=== PATIENT | male | born 1960 | race Caucasian/White ===

== ENCOUNTER → 2023-01-13 10:06 | Outpatient (BNVA) | payer OTHER, SELFPAY | PROVIDERS: PCP Hospitalist; Visit Provider Nurse Practitioner Family ==

== ENCOUNTER 2023-01-13 11:08 | Outpatient (AMB) | payer OTHER, SELFPAY ==
--- NOTE | 2023-01-13 10:11 | MHC.OFFVIS ---
Intake Vital Signs 01/13/23 10:17 Height 5 ft 9 in Weight 211 lb 3.245 oz BMI 31.2 BP 137/71 Blood Pressure Location Lt brachial Position Sitting Pulse 81 Pulse Source Pulse Oximeter Intake Visit Reasons: Colonoscopy Screening Intake Note: Pt presents to the office today for a colonoscopy screening. Pt states he has never had a colonoscopy before. Pt states he has no GI concerns at this time and denies any N/V/D. Pt states he has been having issues on and off since September on his right buttocks which becomes itchy. Pt states he was treated for a yeast infection but pt states the rash is still there but isn't as itchy. Allergies No Known Allergies Allergy (Verified 01/13/23 10:18) HPI Colonoscopy Screening HPI Details 62 year old? male with past medical history of hypertension and hyperlipidemia is here today for pre colonoscopy screening.? Patient was sent to us by his PCP.? This is his first colonoscopy screening.? Patient denies any gastrointestinal symptoms in the past or at present.? Denies any personal or family history of gastrointestinal disease, colon polyps, or cancer. Patient reports that his mom of pancreatic cancer 4 years ago at age of 76.? Denies history of difficulty with sedation or anesthesia in the past.? Negative for history of sleep apnea.? Denies any history of renal, pulmonary, or hepatic disease.?? Patient reports 16 years ago he had stent placed, 4 years later he had partial blockage and drug-eluting stent placed then as well. Patient reports that since then he has no cardiac or respiratory symptoms. No history of infectious? diseases like hepatitis A, B, C, HIV or tuberculosis.? Patient is on low-dose aspirin PFSH Family History Mother Pancreatic cancer Household Members: Spouse Housing: House Alcohol intake: current Alcohol intake frequency: a few times a week Alcohol type: beer and wine Patient Tobacco Use Status: Former Tobacco user Use of substances other than those prescribed or required for medical reasons: No Review of Systems Const Denies weight gain and Denies weight loss ENT Reports no additional complaints, Denies dysphagia and Denies odynophagia Card Reports no additional complaints Resp Reports no additional complaints GI Denies abdominal pain, Denies belching, Denies melena, Denies bloating, Denies change in bowel habits, Denies dysphagia, Denies excessive flatus, Denies dyspepsia, Denies heartburn, Denies diarrhea, Denies loose stools, Denies nausea, Denies odynophagia and Denies vomiting Reports no additional complaints Musc Reports no additional complaints Neuro Reports no additional complaints Psych Reports no additional complaints Endo Reports no additional complaints Physical Exam Vital Signs: Last Vital Signs Pulse 81 01/13/23 10:17 BP 137/71 01/13/23 10:17 BMI result Body Mass Index 31.2 Const General: healthy appearing, no acute distress and well developed Nutritional Appearance: obese Orientation/consciousness: patient oriented x3 HEENT Head: Yes normal to inspection, Yes normocephalic and Yes atraumatic Face and sinus: Yes normal facial exam Mouth: Normal oral and palatal mucosa present Throat: Yes posterior oropharynx normal, Yes tonsils normal and Yes uvula midline Eyes General: appearance normal, both eyes and all related structures Neck Neck: Yes normal visual inspection, Yes full ROM and Yes trachea midline Thyroid: Thyroid normal Resp Effort & Inspection: normal respiratory effort, able to speak in complete sentences, no tracheal deviation and symmetric chest movement Auscultation: clear to auscultation bilaterally Cardio Rate: regular rate Heart sounds: S1 normal heart sound present and S2 normal heart sound present GI Inspection: Yes normal to inspection, No distended and Yes obesity Palpation (GI): Soft to palpation, not firm, nontender and No hepatosplenomegaly present Auscultation: normal bowel sounds General: Yes no CVA tenderness Back/Spine/Pelvis Back: no CVA tenderness Skin General skin exam: elasticity normal, turgor normal and dry skin Neuro General: patient oriented x3 Psych Appearance: grossly normal Mental Status: mental status grossly normal Affect: normal affect Assessment & Plan Assessment & Plan (1) Screen for colon cancer: Code(s): Z12.11 - Encounter for screening for malignant neoplasm of colon Plan: Patient denies any GI, cardiac or respiratory symptoms.? Occasional constipation. Denies any issues with anesthesia in the past.? Denies any history of sleep apnea.? No history infectious diseases in the past or present.? On low-dose aspirin.? No family or personal history of colon cancer or polyps.? Patient denies melena, hematochezia, unintentional weight loss or ribbon like stools.? Discussed at length the pre-procedure,? prep, diet & medications as well as what to expect prior, during and after the procedure.?? Stressed the importance of good bowel prep. ?Recommended the use of Vaseline or Calmoseptine OTC & baby wipes with bowel movements to promote comfort.? ?Patient verbalizes understanding and agrees to plan of care.? He was given the opportunity to ask questions and all questions answered.? We will see him after the procedure.? Medications: New polyethylene glycol 3350 (Miralax) As directed by gastroenterology department at [facility] 238 grams PO ONCE 238 grams 0RF Z12.11 - Encounter for screening for malignant neoplasm of colon bisacodyl (Dulcolax (bisacodyl)) 10 mg (2 x 5 mg) PO BEDTIME 180 tabs 4RF Coding Level of Care Code New Pt Level 3 (90240) Diagnoses Screen for colon cancer Z12.11 Time Spent (min) 40 Comment 30 minutes spent with patient and additional 10 minutes spent reviewing his records
[2023-01-13 10:17] VITALS: BP 137/71; PULSE 81; BMI 31.2
== END 2023-01-13 11:09 | disposition home or self-care (01) ==
PROVIDERS: PCP Hospitalist; Visit Provider Nurse Practitioner Family
DX: Z01.818 Encounter for other preprocedural examination (principal); Z12.11 Encounter for screening for malignant neoplasm of colon
CPT/HCPCS: S0285

== ENCOUNTER 2023-06-04 09:17 | Day surgery (SDC) | payer OTHER, SELFPAY ==
[2023-05-30 13:36] VITALS: BMI 31.2
[2023-06-04 09:41] VITALS: BP 135/77; PULSE 78; RESP 19; TEMP 36.3; O2SAT 97; BMI 30.3
[2023-06-04] MEDS: Lactated Ringers 1,000 ML 50 ML IVCONT (09:57)
--- NOTE | 2023-06-04 09:58 | MHC.SHP ---
Pre-Procedural Eval Section A - 24 Hr Update-Section A only Date of Service: 06/04/23 Section B - Complete if H&P > 30 days Chief Complaint: screening Relevant Family History (Specify if Yes): No Relevant Social History: Alcohol Use Present Medications: see Short Stay Collaborative assessment Medical History: Significant History (Seasonal allergies Hypercholesteremia Myocardial infarction HTN (hypertension)) History of Previous Operations: Relevant previous surgery/procedure and date(s) ([place] teeth extracted Stented coronary artery) Allergies: Allergies Allergy/AdvReac Type Severity Reaction Status Date / Time No Known Allergies Allergy Verified 01/13/23 10:18 Review of Systems Sugical H&P ROS: Negative: Constitution, Cardiovascular, Respiratory, Neurological, Psychiatric, Hem-Onc, Allergic/Immunologic, Gastrointestinal, Genitourinary, Musculoskeletal, Integumentary, Endocrine and Eyes/Ears/Nose/Throat Exam Surgical H&P Exam: Normal: HEENT, Normal: Heart, Normal: Lungs, Normal: Extremities, Normal: Abdomen, Normal: Skin and Normal: Neurological Plan Diagnosis/Plan: Unchanged I have reviewed the history and physical and performed a pertinent physical examination on my patient. No changes have occurred unless specified. Time Spent With Patient Time: Total time managing care of this patient today ____ minutes.
--- NOTE | 2023-06-04 10:22 | P.CONAN_ITS ---
HPI - Anesthesia Eval Consult details Narrative: for colonoscopy [facility] Past Medical History Medical History Seasonal allergies Hypercholesteremia Myocardial infarction HTN (hypertension) Family History Family History Mother Pancreatic cancer Family history of problems with anesthesia: No Surgical History Surgical History [place] teeth extracted Stented coronary artery History of Problems with Anesthesia: No Social History Social History Household Members: Spouse Housing: House Alcohol intake: current Alcohol intake frequency: a few times a week Alcohol type: beer and wine Tobacco use type: Smokeless Tobacco Are you DNR?: No Advance Directives: No Advance Directives Information Provided: Yes Nutrition Risks: No Nutritional Risk Meds Allergies Allergy/AdvReac Type Severity Reaction Status Date / Time No Known Allergies Allergy Verified 01/13/23 10:18 Active Medications: Current Medications Lactated Ringer's (Lr) 1,000 mls @ 50 mls/hr IVCONT .Q20H WINNIE Last Admin: 06/04/23 09:57 Dose: 50 mls/hr Home Medications ?Medication ?Instructions ?Recorded ?Confirmed ?Last Taken ?Type aspirin 81 mg tablet,delayed 81 mg PO DAILY 01/13/23 06/04/23 06/03/23 History release (Adult Aspirin Regimen) atorvastatin 80 mg tablet 80 mg PO DAILY 01/13/23 06/04/23 06/03/23 History metoprolol succinate 50 mg 50 mg PO DAILY 01/13/23 06/04/23 06/03/23 History tablet,extended release 24 hr Exam Height,Weight and Vital Signs: Height 5 ft 9 in Weight 93.123 kg Last Vital Signs Temp 97.4 F 06/04/23 09:41 Pulse 78 06/04/23 09:41 Resp 19 06/04/23 09:41 BP 135/77 06/04/23 09:41 Pulse Ox 97 06/04/23 09:41 O2 Del Method Room Air 06/04/23 09:41 Airway Mallampati Class: II TM Dist: >3cm Neck ROM: Full Heart: rrr Lungs: cta Assessment and Plan Assessment Anesthesia Assessment: Anesthesia Plan Discussed and Chart Reviewed Final Anesthetic Review Family History of Problems with Anesthesia: No History of Problems with Anesthesia: No NPO: Yes ASA Class: III Final Preanesthetic Review: No Changes in Pt Med Stat, Meds/Allgs Chart Reviewed, Consent Obtained/Reviewed and Anes Risks/Benef Reviewed Patient Risk: Intermediate (CAD, 2 stents) Procedure Risk: Low Anesthetic Plan Anesthetic Plan: MAC: Disposition: Standard PACU
--- NOTE | 2023-06-04 11:07 | P.OP_ITS ---
Operative Note Operative Note Date of Service: 06/04/23 Narrative: Operative Information Procedure Description: Colonoscopy Indication: screening Anesthesia: MAC COLONOSCOPY Instrument: Olympus variable stiffness ADULT scope 190L Colonoscopy Monitoring: Vital signs and clinical assessment, continuous EKG monitoring, Pulse oximetry, Carbon Dioxide monitoring and blood pressure monitoring were done throughout the procedure. Colon withdrawal time was 7 minutes. Procedure: The patient was placed in the left lateral decubitis position and pre-procedure medications were administered. After a digital rectal examination of the ano-rectum, the video colonoscope was inserted into the rectum and advanced through the colon to the cecum/TI. The colonoscope was slowly withdrawn in a retrograde panoramic fashion and the colon mucosa was carefully examined including a retroflexed view of the rectum. Findings and interventions are described below. Procedure Difficulty: easy Findings: Terminal Ileum-normal Cecum:normal Ascending Colon: x3-- 8-10 mm sessile polyps removed with cold snare Transverse Colon -normal Descending Colon:normal Sigmoid Colon: x2 sessile polyps 8-10 mm removed with cold snare Rectum: Retroflexion with small internal hemorrhoids seen, grade I Anorectum - normal Intervention: cold snare polypectomy Colon preparation: [place] Bowel Preparation Scale Right colon; 2 Transverse colon: 3 Left colon; 3 (0 = Unprepared colon segment with mucosa not seen due to solid stool that cannot be cleared. 1 = Portion of mucosa of the colon segment seen, but other areas of the colon segment not well seen due to staining, residual stool and/or opaque liquid. 2 = Minor amount of residual staining, small fragments of stool and/or opaque liquid, but mucosa of colon segment seen well. 3 = Entire mucosa of colon segment seen well with no residual staining, small fragments of stool or opaque liquid) Impression and Post Procedure Diagnosis: colon polyps internal hemorrhoids Plan: High fiber diet leaflet Avoid straining at stool, epsom salts and sitz bath, anusol supps or cream Repeat Colonoscopy in 1-2 years due to polyp burden or earlier if clinically indicated Above findings were reviewed with the patient and relevant handouts were provided if indicated.
[2023-06-04 11:11] VITALS: BP 107/60; PULSE 65; RESP 16; TEMP 36.1; O2SAT 97
[2023-06-04 11:26] VITALS: BP 131/60; PULSE 68; RESP 20; TEMP 36.1; O2SAT 95
== END 2023-06-04 12:33 | disposition home or self-care (01) ==
PROVIDERS: PCP Hospitalist; Visit Provider Internal Medicine Gastroenterology
PROC: 0DJD8ZZ Inspection of Lower Intestinal Tract, Via Natural or Artificial Opening Endoscopic (ICD-10-PCS; CPT 45378; principal; 2023-06-04 11:10)
DX: Z12.11 Encounter for screening for malignant neoplasm of colon (principal); D12.2 Benign neoplasm of ascending colon; D12.4 Benign neoplasm of descending colon; D12.5 Benign neoplasm of sigmoid colon; K64.0 First degree hemorrhoids; I10 Essential (primary) hypertension; I25.2 Old myocardial infarction
CPT/HCPCS: 45385; 88305; J1596; J2704

== ENCOUNTER → 2023-06-04 09:17 | Outpatient (BNV) | payer OTHER, SELFPAY | PROVIDERS: PCP Hospitalist; Visit Provider Internal Medicine Gastroenterology | DX: Z12.11 Encounter for screening for malignant neoplasm of colon (principal); D12.2 Benign neoplasm of ascending colon; D12.5 Benign neoplasm of sigmoid colon; K64.0 First degree hemorrhoids | CPT/HCPCS: 45385 ==

== ENCOUNTER 2023-06-18 10:56 | Outpatient (AMB) | payer OTHER, SELFPAY ==
--- NOTE | 2023-06-18 11:07 | A.OFFVIS_ITS ---
Vital Signs 06/18/23 11:15 06/18/23 11:17 Height 5 ft 9 in 5 ft 9 in Weight 207 lb 207 lb BMI 30.6 30.6 BP 147/70 H 147/70 H Blood Pressure Location Lt brachial Lt brachial Position Sitting Sitting Pulse 77 77 Intake Visit Reasons: s/p colon Chin Intake Note: Patient is seen in office for post op assessment post colonoscopy. Pt c/o: denies any concerns at the time of visit Adjunct Spanish Instructor Required: No Accompanied by: Self / Same As Patient Allergies No Known Allergies Allergy (Verified 06/18/23 11:08) HPI HPI s/p colon Chin: Details: LAST VISIT: Screen for colon cancer Patient denies any GI, cardiac or respiratory symptoms.? Occasional constipation. Denies any issues with anesthesia in the past.? Denies any history of sleep apnea.? No history infectious diseases in the past or present.? On low- dose aspirin.? No family or personal history of colon cancer or polyps.? Patient denies melena, hematochezia, unintentional weight loss or ribbon like stools.? Discussed at length the pre-procedure,? prep, diet & medications as well as what to expect prior, during and after the procedure.?? Stressed the importance of good bowel prep. ?Recommended the use of Vaseline or Calmoseptine OTC & baby wipes with bowel movements to promote comfort.? ?Patient verbalizes understanding and agrees to plan of care.? He was given the opportunity to ask questions and all questions answered.? We will see him after the procedure.? Plan Medications New polyethylene glycol 3350 (Miralax) As directed by gastroenterology department at [facility] 238 grams PO ONCE 238 grams 0RF Z12.11 bisacodyl (Dulcolax (bisacodyl)) 10 mg (2 x 5 mg) PO BEDTIME 180 tabs 4RF COLONOSCOPY: Findings: Terminal Ileum-normal Cecum:normal Ascending Colon: x3-- 8-10 mm sessile polyps removed with cold snare Transverse Colon -normal Descending Colon:normal Sigmoid Colon: x2 sessile polyps 8-10 mm removed with cold snare Rectum: Retroflexion with small internal hemorrhoids seen, grade I Anorectum - normal Intervention: cold snare polypectomy Colon preparation: [place] Bowel Preparation Scale Right colon; 2 Transverse colon: 3 Left colon; 3 (0 = Unprepared colon segment with mucosa not seen due to solid stool that cannot be cleared. 1 = Portion of mucosa of the colon segment seen, but other areas of the colon segment not well seen due to staining, residual stool and/or opaque liquid. 2 = Minor amount of residual staining, small fragments of stool and/or opaque liquid, but mucosa of colon segment seen well. 3 = Entire mucosa of colon segment seen well with no residual staining, small fragments of stool or opaque liquid) Impression and Post Procedure Diagnosis: colon polyps internal hemorrhoids Plan: High fiber diet leaflet Avoid straining at stool, epsom salts and sitz bath, anusol supps or cream Repeat Colonoscopy in 1-2 years due to polyp burden or earlier if clinically indicated PATHOLOGY RESULTS: Diagnosis A. Colon, ascending, polyps: Tubular adenomas (multiple pieces); negative for high-grade dysplasia and carcinoma, and inflammatory polyp (1 piece). B. Colon, descending, polyp: Tubular adenoma; negative for high-grade dysplasia and carcinoma. C. Colon, sigmoid, polyps: Tubular adenomas (2 pieces); negative for high-grade dysplasia and carcinoma. TODAY'S VISIT Patient is here today for follow-up and to discuss colonoscopy results. Patient denies any ill effects from the prep, anesthesia or procedure itself. Tubular adenoma found. Recommendation was made for patient to return for colonoscopy in 1-2 years due to the size of the polyps as well as the amount of polyps. Patient reports that he has been doing well. Denies any abdominal pain or discomfort. Denies any melena, hematochezia, unintentional weight loss or ribbon like stools. Patient denies any dyspepsia, dysphagia or odynophagia. [facility] Medical History (Updated 06/18/23 @ 11:29 by KENNY Wolff-) Tubular adenoma of colon Seasonal allergies Hypercholesteremia Myocardial infarction HTN (hypertension) Surgical History [place] teeth extracted Stented coronary artery Family History Mother Pancreatic cancer Social History Household Members: Spouse Housing: House Alcohol intake: current Alcohol intake frequency: a few times a week Alcohol type: beer and wine Tobacco use type: Smokeless Tobacco Review of Systems Const Denies weight gain and Denies weight loss ENT Reports no additional complaints, Denies dysphagia and Denies odynophagia Card Reports no additional complaints Resp Reports no additional complaints GI Denies abdominal pain, Denies belching, Denies melena, Denies bloating, Denies change in bowel habits, Denies dysphagia, Denies excessive flatus, Denies dyspepsia, Denies heartburn, Denies diarrhea, Denies loose stools, Denies nausea, Denies odynophagia and Denies vomiting Reports no additional complaints Musc Reports no additional complaints Neuro Reports no additional complaints Psych Reports no additional complaints Endo Reports no additional complaints Physical Exam Vital Signs: Last Vital Signs Pulse 77 06/18/23 11:17 BP 147/70 H 06/18/23 11:17 BMI result Body Mass Index 30.6 Const General: healthy appearing and no acute distress Nutritional Appearance: obese Orientation/consciousness: patient oriented x3 Resp Effort & Inspection: normal respiratory effort, able to speak in complete sentences, no tracheal deviation and symmetric chest movement Auscultation: clear to auscultation bilaterally Cardio Rate: regular rate GI Inspection: Yes normal to inspection, No distended and Yes obesity Palpation (GI): Soft to palpation, not firm, nontender and No hepatosplenomegaly present Auscultation: normal bowel sounds General: Yes no CVA tenderness Back/Spine/Pelvis Back: no CVA tenderness Skin General skin exam: elasticity normal, turgor normal and dry skin Neuro General: patient oriented x3 Psych Appearance: grossly normal Mental Status: mental status grossly normal Affect: normal affect Assessment & Plan Assessment & Plan (1) Tubular adenoma of colon: Code(s): D12.6 - Benign neoplasm of colon, unspecified Category: Medical (2) Status post colonoscopy: Code(s): Z98.890 - Other specified postprocedural states (3) Hemorrhoids without complication: Code(s): K64.9 - Unspecified hemorrhoids Plan Tubular adenoma found without high-grade dysplasia or carcinoma. Patient will return for colorectal screening in 1 year. High-fiber diet encouraged as well as drinking plenty fluids. Currently has no GI concerning symptoms. He is to call our office if he will have any GI symptoms. He is agreeable to this plan and verbalizes understanding of instructions. He was given the opportunity to ask questions and all questions answered. Medications: New hydrocortisone 2.5% (Proctosol HC) 1 appl RI BID-QID PRN 30 grams 2RF hemorrhoids K64.9 - Unspecified hemorrhoids Coding Level of Care Code Est Pt Level 3 (00250) Diagnoses Tubular adenoma of colon D12.6 Status post colonoscopy Z98.890 Hemorrhoids without complication K64.9 Time Spent (min) 30 Comment 20 minutes spent with patient and additional 10 minutes spent reviewing his records
[2023-06-18 11:15] VITALS: BP 147/70; PULSE 77; BMI 30.6
[2023-06-18 11:17] VITALS: BP 147/70; PULSE 77; BMI 30.6
== END 2023-06-18 11:37 | disposition home or self-care (01) ==
PROVIDERS: PCP Hospitalist; Visit Provider Nurse Practitioner Family
DX: D12.6 Benign neoplasm of colon, unspecified (principal); Z98.890 Other specified postprocedural states; K64.9 Unspecified hemorrhoids
CPT/HCPCS: 99213

== ENCOUNTER → 2023-06-18 10:56 | Outpatient (BNVA) | payer OTHER, SELFPAY | PROVIDERS: PCP Hospitalist; Visit Provider Nurse Practitioner Family ==

== ENCOUNTER 2024-06-18 10:52 | Outpatient (AMB) | payer OTHER, SELFPAY ==
--- NOTE | 2024-06-18 10:55 | MHC.OFFVIS ---
Vital Signs 06/18/24 11:06 Height 5 ft 9 in Weight 202 lb BMI 29.8 BP 126/68 Blood Pressure Location Rt brachial Position Sitting Pulse 72 Pulse Source Pulse Oximeter Pulse Oximetry (%) 98 Oxygen Delivery Method Room Air Intake Visit Reasons: 1 yr follow up Intake Note: ESTABLISHED PATIENT for recall screening. Last visit 1 year ago. Chief Complaint; Pt denies any GI sx or concerns at this time. Pt repeating colo per polyp burden according to operative notes. Social Media Job Titles Required: No Allergies No Known Allergies Allergy (Verified 06/18/24 10:55) Medication List - Last Reconciled 06/18/24 by ANNMARIE WolffP- aspirin (Adult Aspirin Regimen) 81 mg PO DAILY atorvastatin 80 mg PO DAILY fluticasone propionate 50 mcg/actuation 1 spray intranasal BID hydrocortisone 2.5% (Proctosol HC) 1 appl [place] BID-QID PRN metoprolol succinate ER 50 mg PO DAILY HPI HPI 1 yr follow up: Details: LAST VISIT Tubular adenoma of colon Status post colonoscopy Hemorrhoids without complication Plan Tubular adenoma found without high-grade dysplasia or carcinoma. Patient will return for colorectal screening in 1 year. High-fiber diet encouraged as well as drinking plenty fluids. Currently has no GI concerning symptoms. He is to call our office if he will have any GI symptoms. He is agreeable to this plan and verbalizes understanding of instructions. He was given the opportunity to ask questions and all questions answered. Medications New hydrocortisone 2.5% (Proctosol HC) 1 appl MN BID-QID PRN 30 grams 2RF hemorrhoids K64.9 TODAY'S VISIT Patient is here today for follow-up and to discuss going for another colonoscopy. Patient had colonoscopy in May of last year multiple tubular adenoma found. Recommendation was made for colonoscopy to repeated in 1-2 years. Patient reports that he has been feeling well. Denies any GI concerning symptoms. Denies melena, hematochezia, unintentional weight loss or ribbon like stools. Patient denies any issues with anesthesia. No history of sleep apnea. On low-dose aspirin. Patient denies any cardiac or respiratory symptoms. [facility] Medical History Tubular adenoma of colon Seasonal allergies Hypercholesteremia Myocardial infarction HTN (hypertension) Surgical History [place] teeth extracted Stented coronary artery Family History (Reviewed 06/18/24 @ 11: by GIOVANNI Masters) Mother Pancreatic cancer Social History (Reviewed 06/18/24 @ 11: by GIOVANNI Masters) Household Members: Spouse Housing: House Alcohol intake: current Alcohol intake frequency: a few times a week Alcohol type: beer and wine Tobacco use type: Smokeless Tobacco Review of Systems Const Denies weight gain and Denies weight loss ENT Reports no additional complaints, Denies dysphagia and Denies odynophagia Card Reports no additional complaints Resp Reports no additional complaints GI Denies abdominal pain, Denies belching, Denies melena, Denies bloating, Denies change in bowel habits, Denies dysphagia, Denies excessive flatus, Denies dyspepsia, Denies heartburn, Denies diarrhea, Denies loose stools, Denies nausea, Denies odynophagia and Denies vomiting Reports no additional complaints Musc Reports no additional complaints Neuro Reports no additional complaints Psych Reports no additional complaints Endo Reports no additional complaints Physical Exam Vital Signs: Last Vital Signs Pulse 72 06/18/24 11:06 BP 126/68 06/18/24 11:06 Pulse Ox 98 06/18/24 11:06 Oxygen Delivery Method Room Air 06/18/24 11:06 BMI result Body Mass Index 29.8 Const General: healthy appearing and no acute distress Nutritional Appearance: obese Orientation/consciousness: patient oriented x3 Resp Effort & Inspection: normal respiratory effort, able to speak in complete sentences, no tracheal deviation and symmetric chest movement Auscultation: clear to auscultation bilaterally Cardio Rate: regular rate GI Inspection: Yes normal to inspection, No distended and Yes obesity Palpation (GI): Soft to palpation, not firm, nontender and No hepatosplenomegaly present Auscultation: normal bowel sounds General: Yes no CVA tenderness Back/Spine/Pelvis Back: no CVA tenderness Skin General skin exam: elasticity normal, turgor normal and dry skin Neuro General: patient oriented x3 Psych Appearance: grossly normal Mental Status: mental status grossly normal Affect: normal affect Assessment & Plan Assessment & Plan (1) Tubular adenoma of colon: Code(s): D12.6 - Benign neoplasm of colon, unspecified Category: Medical (2) Hemorrhoids without complication: Code(s): K64.9 - Unspecified hemorrhoids (3) Screen for colon cancer: Code(s): Z12.11 - Encounter for screening for malignant neoplasm of colon Plan Patient denies any GI concerning symptoms. Denies any cardiac or respiratory symptoms. No issues with anesthesia in the past. No history of sleep apnea. A low-dose aspirin. What to expect before during and after procedure discussed with patient. Stressed the importance of good bowel prep and clear liquid diet day before procedure. I will see patient after the procedure, sooner on as needed basis. He is agreeable to this plan and verbalizes understanding of instructions. He was given the opportunity to ask questions and all questions answered. Thank you for allowing me to participate in his care Medications: New polyethylene glycol 3350 (Miralax) As directed by gastroenterology department at [facility] 238 grams PO ONCE 238 grams 0RF Z12.11 - Encounter for screening for malignant neoplasm of colon bisacodyl (Dulcolax (bisacodyl)) take 4 tabs at noon the day before your colonoscopy 20 mg (4 x 5 mg) PO ONCE 1 day 4 tabs 0RF Z12.11 - Encounter for screening for malignant neoplasm of colon Refilled hydrocortisone 2.5% (Proctosol HC) 1 appl [place] BID-QID PRN 30 grams 2RF hemorrhoids K64.9 - Unspecified hemorrhoids Coding Level of Care Code Est Pt Level 3 (14688) Diagnoses Tubular adenoma of colon D12.6 Hemorrhoids without complication K64.9 Screen for colon cancer Z12.11 Time Spent (min) 30 Comment 20 minutes spent with patient and additional 10 minutes spent reviewing his records
[2024-06-18 11:06] VITALS: BP 126/68; PULSE 72; O2SAT 98; BMI 29.8
--- OUTSIDE RECORDS SUMMARY | 2024-06-18 12:00 | XMS_ITS | Patient Health Record ---
Author Organization [facility] Address [address] [place] [address] Care Team Providers Care Booker Name Role Phone YAW MERAZ Primary Care Provider Allergies Allergen (clinical drug ingredient) Drug/Non Drug Allergy documented on EMR Reaction Allergy Type Onset Date Status Seasonal IC Unknown Drug Allergy Activ e Results Component Value Reference Range Notes Albumin/Creatinine Ratio,Uri [id number] Reviewed date:12/27/2023 08:04:25 PM Interpretation: Performing Lab:[facility], [address] [facility], Phone - [phone], Director - MDJodry Notes/Report: Creatinine, Urine 146.0 Not Estab. mg/dL Albumin, Urine 8.5 Not Estab. ug/mL Alb/Creat Ratio 6 0-29 mg/g creat Normal: 0 - 29 Moderately increased: 30 - 300 Severely increased: >300 Lipid Panel-[id number] Reviewed date:12/26/2023 07:55:03 AM Interpretation: Performing Lab:[facility], [address] [facility], Phone - [phone], Director - MDJodry Notes/Report: Cholesterol, Total 162 100-199 mg/dL Triglycerides 182 0-149 mg/dL HDL Cholesterol 41 >39 mg/dL VLDL Cholesterol Parker 31 5-40 mg/dL LDL Chol Calc (NIH) 90 0-99 mg/dL Comp. Metabolic Panel (14)-3 Reviewed date:01/06/2024 09:18:38 AM Interpretation: Performing Lab:[facility], [address] [facility], Phone - [phone], Director - MDJodry Notes/Report: Glucose 140 70-99 mg/dL BUN 20 8-27 mg/dL Creatinine 0.96 0.76-1.27 mg/dL eGFR 90 >59 mL/min/1.73 BUN/Creatinine Ratio 21 10-24 Sodium 137 134-144 mmol/L Potassium 4.3 3.5-5.2 mmol/L Chloride 102 96-106 mmol/L Carbon Dioxide, Total 19 20-29 mmol/L Calcium 9.3 8.6-10.2 mg/dL Protein, Total 7.1 6.0-8.5 g/dL Albumin 4.5 3.9-4.9 g/dL Globulin, Total 2.6 1.5-4.5 g/dL Bilirubin, Total 0.5 0.0-1.2 mg/dL Alkaline Phosphatase 96 44-121 IU/L AST (SGOT) 96 0-40 IU/L ALT (SGPT) 120 0-44 IU/L Reason For Referral No Information Medications Medication SIG (Take, Route, Frequency, Duration) Notes Start Date End Date Status Tadalafil 10 MG 1 tablet as needed Orally Once a day for 30 days Active Amoxicillin-Pot Clavulanate 875-125 MG 1 tablet Orally every 12 hrs for 7 days 03/14/2023 Not-Taking Fluticasone Propionate 50 MCG/ACT 1 spray in each nostril Nasally Once a day for 30 days 03/14/2023 Active Doxycycline Hyclate 100 MG 1 tablet Orally 2 times a day for 30 days As needed Active hydrOXYzine HCl 10 MG 1 tablet as needed Orally Once a day for 30 days 12/31/2023 Active Atorvastatin Calcium 80 MG 1 tablet Orally Once a day for 90 days Active Aspir-81 Active Metoprolol Tartrate 50 MG 1 tablet with food Orally DAILY Active Immunizations Vaccine Route Administration Date Status Comme nts Fluzone QD IM Intramuscular 12/12/2022 Administered Social History Tobacco Use: Social History Observation Description Date Details (start date - stop date) Former Smoker NA - NA Tobacco Use/Smoking Question Answer Notes Are you a former smoker How long has it been since y ou last smoked? > 10 years Additional Findings: Tobacco User Heavy cigarett e smoker (20-39 cigs/day) Additional Findings: Tobacco Non-User Ex-cigaret te smoker Alcohol Screen (Audit-C) Question Answer Notes Did you have a drink contain ing alcohol in the past year? Yes How often did you have a dri nk containing alcohol in the past year? 2 to 4 times a month (2 points) How many drinks did you have on a typical day when you were drinking in the past year? 3 or 4 drinks (1 point) How often did you have 6 or more drinks on one occasion in the past year? Never (0 point) Points 3 Interpretation Negative Problems Problem Type SNOMED Code ICD Code Onset Dates Problem Status W/U Status Risk Notes Problem Obesity due to excess calories (158997878) Other obesity due to excess calories (E66.09) Active confirmed Problem Mixed hyperlipidemia (295520062) Mixed hyperlipidemia (E78.2) Active confirmed Problem Insomnia (196662473) Insomnia, unspecified (G47.00) Active confirmed Problem Atherosclerotic heart disease of [place] coronary artery without angina pectoris (404581036056655) Atherosclerotic heart disease of [place] coronary artery without angina pectoris (I25.10) Active confirmed Problem Erectile dysfunction (disorder) (882448234) Male erectile dysfunction, unspecified (N52.9) Active confirmed Problem Essential hypertension (16176002) Essential (primary) hypertension (I10) Active confirmed Vital Signs Heart Rate 85 /min 05/11/2024 Temperature 96.5 degrees Fahrenheit 05/11/2024 Blood pressure diastolic 82 mm Hg 05/11/2024 Oximetry 98 % 05/11/2024 Height 5'9'' in 05/11/2024 Blood pressure systolic 130 mm Hg 05/11/2024 Weight 205.7 lbs 05/11/2024 BMI 30.37 kg/m2 05/11/2024 Encounters Encounter Location Date Provider Diagnosis [address] [place] [address] 12/15/2023 YAW MERAZ Atherosclerotic hear t disease of [place] coronary artery without angina pectoris I25.10 ; Essential (primary) hypertension I10 ; Mixed hyperlipidemia E78.2 ; Male erectile dysfunction, unspecified N52.9 and Polyp of colon K63.[address] [place] [address] 12/29/2023 YAW MERAZ [address] [place] [address] 12/31/2023 TIDWELL RENEEAide Essential (primary) hypertension I10 ; Mixed hyperlipidemia E78.2 ; Insomnia, unspecified G47.00 and Atherosclerotic heart disease of [place] coronary artery without angina pectoris I25.[address] [place] [address] 05/11/2024 YAW MERAZ Male erectile dysfunction, unspecified N52.9 ; Atherosclerotic heart disease of [place] coronary artery without angina pectoris I25.10 ; Essential (primary) hypertension I10 ; Mixed hyperlipidemia E78.2 ; Prediabetes R73.03 and Skin tag L91.[address] [place] [address] 01/06/2024 TIDWELL GUL Impaired fasting glu cose R73.[address] [address] 01/09/[address] [address] 05/11/[address] [address] 05/13/2024 YAW MERAZ Assessments Encounter Date Diagnosis (ICD Code) Assessment Notes Treatment Notes Treatment Clinical Notes Section Notes 12/15/2023 Atherosclerotic heart disease of [place] coronary artery without angina pectoris (ICD-10 - I25.10) Mr. Hogan is a 63-year-old gentleman with coronary artery disease and status post stent placement in 2006 and 2010 at [facility] and follow-up with Dr. Nicholson , hypertension and hyperlipidemia here for follow up. Plan is as follows: CAD. status post NOHELIA and 2 stents in 2006 and [address] Nicholson. He is asymptomatic and he is on beta-blockers and statins. Hypertension. His blood pressure is within reasonable limits. He did not take his medication this morning. Continue Metoprolol Tartrate 50 MG plan follow-up in 2 weeks for blood pressure check Hyperlipidemia. Suggested dietary modifications and weight loss advised. Continue Atorvastatin 10 MG daily. Advised appropriate hydration. Male erectile dysfunction. Continue Tadalafil 10 MG as needed. Class 1 obesity. Advised dietary restrictions and regimental exercise. Goal is to lose 5-6 lbs a month. Colon polyps. Adenoma of colon on last colonoscopy. He is on 5 year plan. Screening blood work before next appointment. General health concerns discussed with patient. Scribe services used to formulate this note under HIPAA compliance and under [place] law mandated for scribe services. Patient aware of service. Verbal consent and written consent taken from the patient. Patient understands and verbalizes understanding of the scribes services and all questions answered regarding scribes services. Patient agrees to use of scribes services. 12/15/2023 Essential (primary) hypertension (ICD-10 - I10) Mr. Hogan is a 63-year-old gentleman with coronary artery disease and status post stent placement in 2006 and 2010 at [facility] and follow-up with Dr. Nicholson , hypertension and hyperlipidemia here for follow up. Plan is as follows: CAD. status post NOHELIA and 2 stents in 2006 and [address] Nicholson. He is asymptomatic and he is on beta-blockers and statins. Hypertension. His blood pressure is within reasonable limits. He did not take his medication this morning. Continue Metoprolol Tartrate 50 MG plan follow-up in 2 weeks for blood pressure check Hyperlipidemia. Suggested dietary modifications and weight loss advised. Continue Atorvastatin 10 MG daily. Advised appropriate hydration. Male erectile dysfunction. Continue Tadalafil 10 MG as needed. Class 1 obesity. Advised dietary restrictions and regimental exercise. Goal is to lose 5-6 lbs a month. Colon polyps. Adenoma of colon on last colonoscopy. He is on 5 year plan. Screening blood work before next appointment. General health concerns discussed with patient. Scribe services used to formulate this note under HIPAA compliance and under [place] law mandated for scribe services. Patient aware of service. Verbal consent and written consent taken from the patient. Patient understands and verbalizes understanding of the scribes services and all questions answered regarding scribes services. Patient agrees to use of scribes services. 05/11/2024 Atherosclerotic heart disease of [place] coronary artery without angina pectoris (ICD-10 - I25.10) Mr. Hogan is a 63-year-old gentleman with coronary artery disease and status post stent placement in 2006 and 2010 at [facility] and follow-up with Dr. Nicholson , hypertension, hyperlipidemia erectile dysfunction is here here for follow up and also want to have skin tags removed from bilateral axilla and groin area. plan it is follows Coronary artery disease and status post stent placement. He is asymptomatic. He is on metoprolol 50 mg twice a day, atorvastatin 80 mg daily and aspirin 81 mg daily. He follows up with cardiology. Hypertension/hype rlipidemia. Blood pressure and lipid panel within reasonable limits on her current regimen Pre-diabetes Dietary modifications and weight loss recommended and check hemoglobin A1c and fasting blood sugars Skin tags removal. With the verbal consent of the patient we removed total of 5 skin tags. Side effects of liquid nitrogen treatment discussed with the patients like blister formations, hyperpigmentation in some cases and he understood and agreed to proceed with the plan. Obesity. Complications of obesity discussed. Advised regular exercise, low calorie diet and also encouraged abstinence from alcohol consumption as much as possible. Erectile dysfunction. Most likely arterial insufficiency. Continue on tadalafil 10 mg as needed 05/11/2024 Male erectile dysfunction, unspecified (ICD-10 - N52.9) Mr. Hogan is a 63-year-old gentleman with coronary artery disease and status post stent placement in 2006 and 2010 at [facility] and follow-up with Dr. Nicholson , hypertension, hyperlipidemia erectile dysfunction is here here for follow up and also want to have skin tags removed from bilateral axilla and groin area. plan it is follows Coronary artery disease and status post stent placement. He is asymptomatic. He is on metoprolol 50 mg twice a day, atorvastatin 80 mg daily and aspirin 81 mg daily. He follows up with cardiology. Hypertension/hype rlipidemia. Blood pressure and lipid panel within reasonable limits on her current regimen Pre-diabetes Dietary modifications and weight loss recommended and check hemoglobin A1c and fasting blood sugars Skin tags removal. With the verbal consent of the patient we removed total of 5 skin tags. Side effects of liquid nitrogen treatment discussed with the patients like blister formations, hyperpigmentation in some cases and he understood and agreed to proceed with the plan. Obesity. Complications of obesity discussed. Advised regular exercise, low calorie diet and also encouraged abstinence from alcohol consumption as much as possible. Erectile dysfunction. Most likely arterial insufficiency. Continue on tadalafil 10 mg as needed 12/31/2023 Essential (primary) hypertension (ICD-10 - I10) Mr. Hogan is a 63-year-old gentleman with coronary artery disease and status post stent placement in 2006 and 2010 at [facility] and follow-up with Dr. Nicholson , hypertension and hyperlipidemia here for follow up. Plan is as follows: CAD. status post NOHELIA and 2 stents in 2006 and [address] Nicholson. He is asymptomatic and he is on beta-blockers and statins. Hypertension. His blood pressure is within reasonable limits today. Continue Metoprolol Tartrate 50 MG Hyperlipidemia. Triglycerides 182 which is high. Suggested dietary modifications and weight loss advised. Increase Atorvastatin to 20 MG daily. Advised appropriate hydration. Recheck lipid panel. Male erectile dysfunction. Continue Tadalafil 10 MG as needed. Insomnia. Importance of sleep hygiene discussed. Start hydroxyzine 10 MG once a day plan titrate up as needed Class 1 obesity. Advised dietary restrictions and regimental exercise. Goal is to lose 5-6 lbs a month. Blood work reviewed with patient and questions answered. General health concerns discussed with patient. Scribe services used to formulate this note under HIPAA compliance and under [place] law mandated for scribe services. Patient aware of service. Verbal consent and written consent taken from the patient. Patient understands and verbalizes understanding of the scribes services and all questions answered regarding scribes services. Patient agrees to use of scribes services. 01/06/2024 Impaired fasting glucose (ICD-10 - R73.01) 05/11/2024 Essential (primary) hypertension (ICD-10 - I10) Mr. Hogan is a 63-year-old gentleman with coronary artery disease and status post stent placement in 2006 and 2010 at [facility] and follow-up with Dr. Nicholson , hypertension, hyperlipidemia erectile dysfunction is here here for follow up and also want to have skin tags removed from bilateral axilla and groin area. plan it is follows Coronary artery disease and status post stent placement. He is asymptomatic. He is on metoprolol 50 mg twice a day, atorvastatin 80 mg daily and aspirin 81 mg daily. He follows up with cardiology. Hypertension/hype rlipidemia. Blood pressure and lipid panel within reasonable limits on her current regimen Pre-diabetes Dietary modifications and weight loss recommended and check hemoglobin A1c and fasting blood sugars Skin tags removal. With the verbal consent of the patient we removed total of 5 skin tags. Side effects of liquid nitrogen treatment discussed with the patients like blister formations, hyperpigmentation in some cases and he understood and agreed to proceed with the plan. Obesity. Complications of obesity discussed. Advised regular exercise, low calorie diet and also encouraged abstinence from alcohol consumption as much as possible. Erectile dysfunction. Most likely arterial insufficiency. Continue on tadalafil 10 mg as needed 12/31/2023 Mixed hyperlipidemia (ICD-10 - E78.2) Mr. Hogan is a 63-year-old gentleman with coronary artery disease and status post stent placement in 2006 and 2010 at [facility] and follow-up with Dr. Nicholson , hypertension and hyperlipidemia here for follow up. Plan is as follows: CAD. status post NOHELIA and 2 stents in 2006 and [address] Nicholson. He is asymptomatic and he is on beta-blockers and statins. Hypertension. His blood pressure is within reasonable limits today. Continue Metoprolol Tartrate 50 MG Hyperlipidemia. Triglycerides 182 which is high. Suggested dietary modifications and weight loss advised. Increase Atorvastatin to 20 MG daily. Advised appropriate hydration. Recheck lipid panel. Male erectile dysfunction. Continue Tadalafil 10 MG as needed. Insomnia. Importance of sleep hygiene discussed. Start hydroxyzine 10 MG once a day plan titrate up as needed Class 1 obesity. Advised dietary restrictions and regimental exercise. Goal is to lose 5-6 lbs a month. Blood work reviewed with patient and questions answered. General health concerns discussed with patient. Scribe services used to formulate this note under HIPAA compliance and under [place] law mandated for scribe services. Patient aware of service. Verbal consent and written consent taken from the patient. Patient understands and verbalizes understanding of the scribes services and all questions answered regarding scribes services. Patient agrees to use of scribes services. 12/31/2023 Insomnia, unspecified (ICD-10 - G47.00) Mr. Hogan is a 63-year-old gentleman with coronary artery disease and status post stent placement in 2006 and 2010 at [facility] and follow-up with Dr. Nicholson , hypertension and hyperlipidemia here for follow up. Plan is as follows: CAD. status post NOHELIA and 2 stents in 2006 and [address] Nicholson. He is asymptomatic and he is on beta-blockers and statins. Hypertension. His blood pressure is within reasonable limits today. Continue Metoprolol Tartrate 50 MG Hyperlipidemia. Triglycerides 182 which is high. Suggested dietary modifications and weight loss advised. Increase Atorvastatin to 20 MG daily. Advised appropriate hydration. Recheck lipid panel. Male erectile dysfunction. Continue Tadalafil 10 MG as needed. Insomnia. Importance of sleep hygiene discussed. Start hydroxyzine 10 MG once a day plan titrate up as needed Class 1 obesity. Advised dietary restrictions and regimental exercise. Goal is to lose 5-6 lbs a month. Blood work reviewed with patient and questions answered. General health concerns discussed with patient. Scribe services used to formulate this note under HIPAA compliance and under [place] law mandated for scribe services. Patient aware of service. Verbal consent and written consent taken from the patient. Patient understands and verbalizes understanding of the scribes services and all questions answered regarding scribes services. Patient agrees to use of scribes services. 12/15/2023 Mixed hyperlipidemia (ICD-10 - E78.2) Mr. Hogan is a 63-year-old gentleman with coronary artery disease and status post stent placement in 2006 and 2010 at [facility] and follow-up with Dr. Nicholson , hypertension and hyperlipidemia here for follow up. Plan is as follows: CAD. status post NOHELIA and 2 stents in 2006 and [address] Nicholson. He is asymptomatic and he is on beta-blockers and statins. Hypertension. His blood pressure is within reasonable limits. He did not take his medication this morning. Continue Metoprolol Tartrate 50 MG plan follow-up in 2 weeks for blood pressure check Hyperlipidemia. Suggested dietary modifications and weight loss advised. Continue Atorvastatin 10 MG daily. Advised appropriate hydration. Male erectile dysfunction. Continue Tadalafil 10 MG as needed. Class 1 obesity. Advised dietary restrictions and regimental exercise. Goal is to lose 5-6 lbs a month. Colon polyps. Adenoma of colon on last colonoscopy. He is on 5 year plan. Screening blood work before next appointment. General health concerns discussed with patient. Scribe services used to formulate this note under HIPAA compliance and under [place] law mandated for scribe services. Patient aware of service. Verbal consent and written consent taken from the patient. Patient understands and verbalizes understanding of the scribes services and all questions answered regarding scribes services. Patient agrees to use of scribes services. 12/31/2023 Atherosclerotic heart disease of [place] coronary artery without angina pectoris (ICD-10 - I25.10) Mr. Hogan is a 63-year-old gentleman with coronary artery disease and status post stent placement in 2006 and 2010 at [facility] and follow-up with Dr. Nicholson , hypertension and hyperlipidemia here for follow up. Plan is as follows: CAD. status post NOHELIA and 2 stents in 2006 and [address] Nicholson. He is asymptomatic and he is on beta-blockers and statins. Hypertension. His blood pressure is within reasonable limits today. Continue Metoprolol Tartrate 50 MG Hyperlipidemia. Triglycerides 182 which is high. Suggested dietary modifications and weight loss advised. Increase Atorvastatin to 20 MG daily. Advised appropriate hydration. Recheck lipid panel. Male erectile dysfunction. Continue Tadalafil 10 MG as needed. Insomnia. Importance of sleep hygiene discussed. Start hydroxyzine 10 MG once a day plan titrate up as needed Class 1 obesity. Advised dietary restrictions and regimental exercise. Goal is to lose 5-6 lbs a month. Blood work reviewed with patient and questions answered. General health concerns discussed with patient. Scribe services used to formulate this note under HIPAA compliance and under [place] law mandated for scribe services. Patient aware of service. Verbal consent and written consent taken from the patient. Patient understands and verbalizes understanding of the scribes services and all questions answered regarding scribes services. Patient agrees to use of scribes services. 05/11/2024 Mixed hyperlipidemia (ICD-10 - E78.2) Mr. Hogan is a 63-year-old gentleman with coronary artery disease and status post stent placement in 2006 and 2010 at [facility] and follow-up with Dr. Nicholson , hypertension, hyperlipidemia erectile dysfunction is here here for follow up and also want to have skin tags removed from bilateral axilla and groin area. plan it is follows Coronary artery disease and status post stent placement. He is asymptomatic. He is on metoprolol 50 mg twice a day, atorvastatin 80 mg daily and aspirin 81 mg daily. He follows up with cardiology. Hypertension/hype rlipidemia. Blood pressure and lipid panel within reasonable limits on her current regimen Pre-diabetes Dietary modifications and weight loss recommended and check hemoglobin A1c and fasting blood sugars Skin tags removal. With the verbal consent of the patient we removed total of 5 skin tags. Side effects of liquid nitrogen treatment discussed with the patients like blister formations, hyperpigmentation in some cases and he understood and agreed to proceed with the plan. Obesity. Complications of obesity discussed. Advised regular exercise, low calorie diet and also encouraged abstinence from alcohol consumption as much as possible. Erectile dysfunction. Most likely arterial insufficiency. Continue on tadalafil 10 mg as needed 12/15/2023 Male erectile dysfunction, unspecified (ICD-10 - N52.9) Mr. Hogan is a 63-year-old gentleman with coronary artery disease and status post stent placement in 2006 and 2010 at [facility] and follow-up with Dr. Nicholson , hypertension and hyperlipidemia here for follow up. Plan is as follows: CAD. status post NOHELIA and 2 stents in 2006 and [address] Nicholson. He is asymptomatic and he is on beta-blockers and statins. Hypertension. His blood pressure is within reasonable limits. He did not take his medication this morning. Continue Metoprolol Tartrate 50 MG plan follow-up in 2 weeks for blood pressure check Hyperlipidemia. Suggested dietary modifications and weight loss advised. Continue Atorvastatin 10 MG daily. Advised appropriate hydration. Male erectile dysfunction. Continue Tadalafil 10 MG as needed. Class 1 obesity. Advised dietary restrictions and regimental exercise. Goal is to lose 5-6 lbs a month. Colon polyps. Adenoma of colon on last colonoscopy. He is on 5 year plan. Screening blood work before next appointment. General health concerns discussed with patient. Scribe services used to formulate this note under HIPAA compliance and under [place] law mandated for scribe services. Patient aware of service. Verbal consent and written consent taken from the patient. Patient understands and verbalizes understanding of the scribes services and all questions answered regarding scribes services. Patient agrees to use of scribes services. 05/11/2024 Prediabetes (ICD-10 - R73.03) Mr. Hogan is a 63-year-old gentleman with coronary artery disease and status post stent placement in 2006 and 2010 at [facility] and follow-up with Dr. Nicholson , hypertension, hyperlipidemia erectile dysfunction is here here for follow up and also want to have skin tags removed from bilateral axilla and groin area. plan it is follows Coronary artery disease and status post stent placement. He is asymptomatic. He is on metoprolol 50 mg twice a day, atorvastatin 80 mg daily and aspirin 81 mg daily. He follows up with cardiology. Hypertension/hype rlipidemia. Blood pressure and lipid panel within reasonable limits on her current regimen Pre-diabetes Dietary modifications and weight loss recommended and check hemoglobin A1c and fasting blood sugars Skin tags removal. With the verbal consent of the patient we removed total of 5 skin tags. Side effects of liquid nitrogen treatment discussed with the patients like blister formations, hyperpigmentation in some cases and he understood and agreed to proceed with the plan. Obesity. Complications of obesity discussed. Advised regular exercise, low calorie diet and also encouraged abstinence from alcohol consumption as much as possible. Erectile dysfunction. Most likely arterial insufficiency. Continue on tadalafil 10 mg as needed 12/15/2023 Polyp of colon (ICD-10 - K63.5) Mr. Hogan is a 63-year-old gentleman with coronary artery disease and status post stent placement in 2006 and 2010 at [facility] and follow-up with Dr. Nicholson , hypertension and hyperlipidemia here for follow up. Plan is as follows: CAD. status post NOHELIA and 2 stents in 2006 and [address] Nicholson. He is asymptomatic and he is on beta-blockers and statins. Hypertension. His blood pressure is within reasonable limits. He did not take his medication this morning. Continue Metoprolol Tartrate 50 MG plan follow-up in 2 weeks for blood pressure check Hyperlipidemia. Suggested dietary modifications and weight loss advised. Continue Atorvastatin 10 MG daily. Advised appropriate hydration. Male erectile dysfunction. Continue Tadalafil 10 MG as needed. Class 1 obesity. Advised dietary restrictions and regimental exercise. Goal is to lose 5-6 lbs a month. Colon polyps. Adenoma of colon on last colonoscopy. He is on 5 year plan. Screening blood work before next appointment. General health concerns discussed with patient. Scribe services used to formulate this note under HIPAA compliance and under [place] law mandated for scribe services. Patient aware of service. Verbal consent and written consent taken from the patient. Patient understands and verbalizes understanding of the scribes services and all questions answered regarding scribes services. Patient agrees to use of scribes services. 05/11/2024 Skin tag (ICD-10 - L91.8) Mr. Hogan is a 63-year-old gentleman with coronary artery disease and status post stent placement in 2006 and 2010 at [facility] and follow-up with Dr. Nicholson , hypertension, hyperlipidemia erectile dysfunction is here here for follow up and also want to have skin tags removed from bilateral axilla and groin area. plan it is follows Coronary artery disease and status post stent placement. He is asymptomatic. He is on metoprolol 50 mg twice a day, atorvastatin 80 mg daily and aspirin 81 mg daily. He follows up with cardiology. Hypertension/hype rlipidemia. Blood pressure and lipid panel within reasonable limits on her current regimen Pre-diabetes Dietary modifications and weight loss recommended and check hemoglobin A1c and fasting blood sugars Skin tags removal. With the verbal consent of the patient we removed total of 5 skin tags. Side effects of liquid nitrogen treatment discussed with the patients like blister formations, hyperpigmentation in some cases and he understood and agreed to proceed with the plan. Obesity. Complications of obesity discussed. Advised regular exercise, low calorie diet and also encouraged abstinence from alcohol consumption as much as possible. Erectile dysfunction. Most likely arterial insufficiency. Continue on tadalafil 10 mg as needed Plan Of Treatment Pending Test Test Name Order Date [id number] 01/06/2024 Hemoglobin [id number] 01/06/2024 Future Test Test Name Order Date Hemoglobin [id number] 05/11/2024 Albumin/Creatinine Ratio,Urine-[id number] Lipid Panel-[id number] 05/11/2024 Comp. Metabolic Panel [id number] 2024 Next Appt Details Provider Name:YAW MERAZ , 07/08/2024 01:00:00 PM, [address] [place] [address], [phone], Provider Name:YAW MERAZ , 12/15/2024 10:00:00 AM, [address] [place] [address], [phone], Insurance Providers Payer Name Payer Address Payer Phone Subscriber Number Group Number Insured Name Patient Relationship to Insured Coverage Start Date Coverage End Date Hermelinda [address] [place] [phone] [id number] BARBIE HOGAN Self - patient is the insured 2 Medical (General) History Medical History History ICD Code hypertension, benign hyperlipidemia CAD S/P NOHELIA and 2 stents 2006 and [address] Nicholson Surgical History Surgery Date(Month/Year) NONE
--- OUTSIDE RECORDS SUMMARY | 2024-06-18 12:00 | XMS_ITS ---
Author Organization [facility] Address [address] [place] [address] [address] [place] [address] Care Team Providers Care Blind Teacher Name Role Phone YAW MERAZ Primary Care Provider [phone] REASON FOR VISIT Tadalafil PA Approval Encounters Encounter Location Date Provider Diagnosis [facility] [address] [facility] [address] [place] [address] 05/13/2024 YAW MERAZ Plan Of Treatment Next Appt Details Provider Name:YAW MERAZ , 07/08/2024 01:00:00 PM, [address] [place] [address] [address], [place], [address], Provider Name:YAW MERAZ , 12/15/2024 10:00:00 AM, [address] [place] [address] [address], [place], [address], Progress Notes * BARBIE ASHTONDOB: [birth year] (63 yo M)Acc No.[id number]:05/13/2024 Patient:?CAITLINBARBIE PANG :1960???Age:63 Y???Sex:Male Address:[address] [place] [address] * true * Date:? Generated for Printi ng/Fadanielg/eTransmitting on:?06/18/2024 12:00 PM EDT
--- OUTSIDE RECORDS SUMMARY | 2024-06-18 12:00 | XMS_ITS ---
Author Organization [facility] Address [address] [facility] [address] [place] [address] Care Team Providers Care Tank Farm Gauger Name Role Phone YAW MERAZ Primary Care Provider Allergies Allergen (clinical drug ingredient) Drug/Non Drug Allergy documented on EMR Reaction Allergy Type Onset Date Status Seasonal IC Unknown Drug Allergy Activ e REASON FOR VISIT Skin tag removal Medications Medication SIG (Take, Route, Frequency, Duration) Notes Start Date End Date Status Amoxicillin-Pot Clavulanate 875-125 MG 1 tablet Orally [...] Once a day for 90 days Active Tadalafil 10 MG 1 tablet as needed Orally Once a day for 30 days Active Aspir-81 Active Metoprolol Tartrate 50 MG 1 tablet with food Orally DAILY Active Social History Tobacco Use: Social History Observation [...] Never (0 point) Points 3 Interpretation Negative Vital Signs Temperature 96.5 degrees Fahrenheit 05/12/19 Oximetry 98 % 05/11/2024 Heart Rate 85 /min 05/11/2024 Blood pressure systolic 130 mm Hg 05/12/19 Blood pressure diastolic 82 mm Hg 025 Weight 205.7 lbs 05/11/2024 BMI 30.37 kg/m2 05/11/2024 Height 5'9'' in 05/11/2024 Encounters Encounter Location Date Provider Diagnosis [facility] [address] [address] 05/11/2024 YAW MERAZ Male erectile dysfunction, unspecified N52.9 ; Atherosclerotic heart disease of crow coronary artery without angina pectoris I25.10 ; Essential (primary) hypertension I10 ; Mixed hyperlipidemia E78.2 ; Prediabetes R73.03 and Skin tag L91.8 Assessments Encounter Date Diagnosis (ICD Code) Assessment Notes Treatment Notes Treatment Clinical Notes Section Notes 05/11/2024 Male erectile dysfunction, unspecified (ICD-10 - N52.9) Mr. Hogan is a 63-year-old gentleman with coronary artery disease and status post stent placement in 2006 and 2010 at [facility] and follow-up with Dr. Nicholson , hypertension, [...] on tadalafil 10 mg as needed 05/11/2024 Atherosclerotic heart disease of crow coronary artery without angina pectoris (ICD-10 - I25.10) Mr. Hogan is a 63-year-old gentleman with coronary artery disease and status post stent placement in 2006 and 2010 at [facility] and follow-up with Dr. Nicholson , hypertension, [...] on tadalafil 10 mg as needed 05/11/2024 Essential (primary) hypertension (ICD-10 - I10) Mr. Hogan is a 63-year-old gentleman with coronary artery disease and status post stent placement in 2006 and 2010 at [facility] and follow-up with Dr. Nicholson , hypertension, [...] on tadalafil 10 mg as needed 05/11/2024 Mixed hyperlipidemia (ICD-10 - E78.2) Mr. Hogan is a 63-year-old gentleman with coronary artery disease and status post stent placement in 2006 and 2010 at [facility] and follow-up with Dr. Nicholson , hypertension, [...] on tadalafil 10 mg as needed 05/11/2024 Prediabetes (ICD-10 - R73.03) Mr. Hogan is a 63-year-old gentleman with coronary artery disease and status post stent placement in 2006 and 2010 at [facility] and follow-up with Dr. Nicholson , hypertension, [...] on tadalafil 10 mg as needed 05/11/2024 Skin tag (ICD-10 - L91.8) Mr. Hogan is a 63-year-old gentleman with coronary artery disease and status post stent placement in 2006 and 2010 at [facility] and follow-up with Dr. Nicholson , hypertension, [...] 10 mg as needed Plan Of Treatment Medication Medication Name Sig Start Date Stop Date Notes Tadalafil 10 MG 1 tablet as needed O rally Once a day for 30 days Future Test Test Name Order Date Hemoglobin [id number] 05/11/2024 Albumin/Creatinine Ratio,Urine-[id number] Lipid Panel-[id number] 05/11/2024 Comp. Metabolic Panel [id number] 2024 Next Appt Details Follow Up: next appt, Reason : Provider Name:YAW MERAZ , 07/08/2024 01:00:00 PM, [address] [place] [address], [place], [address], Provider Name:YAW MERAZ , 12/15/2024 10:00:00 AM, [address] [place] [address], [place], [address], Progress Notes * BARBIE HOGANDOB: [birth year] (63 yo M)Acc No.[id number]:05/11/2024 Progress Notes Patient:?BARBIE HOGAN Provider:?YAW MERAZ MD :1960???Age:63 Y???Sex:Male Keyon e:05/11/2024 Address:[address] [place] [address] , [facility] Subjective: * Chief Complaints: * ???Skin tag removal * HPI: ???Internal Medicine:?Mr. Hogan is a 63-year-old gentleman with coronary artery disease and status post stent placement in 2006 and 2010 at [facility] and follow-up with Dr. Nicholson , hypertension and hyperlipidemia here for follow up and also want to have skin tags removed from bilateral axilla and groin area. He is physically active but he does not exercise. His weight is stable. He sleeps well, appetite is good. No GI or symptoms. He does not appear anxious or depressed. He denies any other active issues or concerns. * ROS:?General/Constitutional:?Overall health?Good.?Change in appetite?denies.?Chills?denies.?Fever?denies.?Night sweats?denies.?Sleep disturbance?denies.?Weight gain?denies.?Weight loss?denies.?Neurologic:?Difficulty speaking?denies.?Dizziness?denies.?Gait abnormality?denies.?Headache?denies.?Loss of strength?denies.?Memory loss?denies.?Seizures?denies.?Tingling/Numbness?denies .?Ophthalmologic:?Blurred vision?denies.?Discharge?denies.?Dry eye?denies.?Red eye?denies.?ENT:?Change in Voice?Denies.?Cold Symptoms?Denies.?Cough?Denies.?Dizziness?Denies.?Nasal Congestion?Denies.?Otalgia?Denies.?postnasal drip?Denies.?Blocked ear?denies.?Nosebleed?denies.?Snoring?denies.?Cardiovascular:?Diaphoresis?Denies.?Pedal Edema?Denies.?PND (Paroxsymal nocturnal dyspnea)?Denies.?Chest pain?denies.?Difficulty laying flat?denies.?Dyspnea on exertion?denies.?Heart murmur?denies.?Orthopnea?denies.?Respiratory:?Snoring?denies.?Asthma?denies.?Cough?denies.?Shortness of breath with exertion?denies.?Sputum production?denies.?Wheezing?denies.?Gastrointestinal:?Change in bowel habits?denies.?Constipation?denies.?Decreased appetite?denies.?Diarrhea?denies.?Heartburn?denies.?Nausea?denies.?Vomiting?ermelinda es.?Musculoskeletal:?tingling/numbness?Denies.?myalgias?Denies.?Joint Swelling?Denies.?extremeties?normal.?Arthritis?denies.?Back problems?denies.?Carpal tunnel?denies.?Joint stiffness?denies.?Muscle aches?denies.?Endocrine:?Bowel Changes?Denies.?Breast Discharge?Denies.?poor libido?Denies.?Cold intolerance?denies.?Excessive sweating?denies.?Excessive thirst?denies.?Frequent urination?denies.?Thyroid problems?denies.?Skin:?Bruising?Denies.?Eczema?denies.?Hair changes?denies.?Rash?denies.?Skin lesion(s)?skin tags in groin area and bilateral axilla.?Psychiatric:?Anxiety?denies.?Depressed mood?denies.?Difficulty sleeping?,admits.?Nervous breakdown?denies.?Substance abuse?denies.?Urology:?abnormal menstrual bleeding?denies.?blood in urine?denies.?burning on urination?denies.?difficulty urinating?denies.?discharge?denies.?dysuria?denies.? * Medical History:? * Surgical History:?NONE * Hospitalization/Major Diagno stic Procedure:? * Family History:?Father: brianna osorio, diagnosed with Heart Disease.?Mother: , diagnosed with Cancer.? Liver cancer. * Social History:?Tobacco Use:?Tobacco Use/Smoking?Are you a?former smoker ?How long has it been since you last smoked??> 10 years ?Additional Findings: Tobacco User?Heavy cigarette smoker (20-39 cigs/day) ?Additional Findings: Tobacco Non-User?Ex-cigarette smoker ???Drugs/Alcohol:?Alcohol Screen (Audit-C)?Did you have a drink containing alcohol in the past year??Yes ?How often did you have a drink containing alcohol in the past year??2 to 4 times a month (2 points) ?How many drinks did you have on a typical day when you were drinking in the past year??3 or 4 drinks (1 point) ?How often did you have 6 or more drinks on one occasion in the past year??Never (0 point) ?Points?3 ?Interpretation?Negative ???Miscellaneous:?Exercise: none. ?Living with: spouse. ?Marital status: . ?Occupation: Works full-time. [employer]. * Medications:?TakingAspir-81 Metoprolol Tartrate 50 MG Tablet 1 tablet with food Orally DAILY Fluticasone Propionate 50 MCG/ACT Suspension 1 spray in each nostril Nasally Once a day Doxycycline Hyclate 100 MG Tablet 1 tablet Orally 2 times a day As neededhydrOXYzine HCl 10 MG Tablet 1 tablet as needed Orally Once a day Atorvastatin Calcium 80 MG Tablet 1 tablet Orally Once a day Tadalafil 10 MG Tablet 1 tablet as needed Orally Once a day Taking Aspir-81 Taking Metoprolol Tartrate 50 MG Tablet 1 tablet with food Orally DAILY Taking Fluticasone Propionate 50 MCG/ACT Suspension 1 spray in each nostril Nasally Once a day Taking Doxycycline Hyclate 100 MG Tablet 1 tablet Orally 2 times a day As neededTaking hydrOXYzine HCl 10 MG Tablet 1 tablet as needed Orally Once a day Taking Atorvastatin Calcium 80 MG Tablet 1 tablet Orally Once a day Taking Tadalafil 10 MG Tablet 1 tablet as needed Orally Once a day Coi-WfuejlGphugtdstie-Mrx Clavulanate 875-125 MG Tablet 1 tablet Orally every 12 hrs Medication List reviewed and reconciled with the patientNot-Taking Amoxicillin- Pot Clavulanate 875-125 MG Tablet 1 tablet Orally every 12 hrs Medication List reviewed and reconciled with the patient * Allergies:?Seasonal IC: Dax rgy - Criticality Low Objective: * Vitals:?Temp:96.5F, Oxygen s at %:98%, HR:85/min, BP:130/82mm Hg, Wt:205.7lbs, BMI:30.37Index, Ht: 5'9''. * ???Past Orders: ???Lab:Albumin/Creatinine Ra jess,Urine-[id number] (Order Date - 12/25/2023) (Collection Date & Time - 12/25/2023 03:05 PM) ? Value Reference Range ?Creatinine, Urine 146.0 No t Estab. - mg/dL ?Albumin, Urine 8.5 Not E stab. - ug/mL ?Alb/Creat Ratio 6 0-29 - mg/g creat ???Lab:Comp. Metabolic Panel [id number] (Order Date - 12/15/2023) (Collection Date & Time - 12/25/2023 08:44 AM) ? Value Reference Range ?Glucose 140 H 70-99 - mg/d L ?BUN 20 8-27 - mg/dL ?Creatinine 0.96 0.76-1.27 - mg/dL ?BUN/Creatinine Ratio 21 10-24 - ?Sodium 137 134-144 - mmo l/L ?Potassium 4.3 3.5-5.2 - mmol/L ?Chloride 102 96-106 - mm ol/L ?Carbon Dioxide, Total 19 L 20-29 - mmol/L ?Calcium 9.3 8.6-10.2 - m g/dL ?Protein, Total 7.1 6.0-8 .5 - g/dL ?Albumin 4.5 3.9-4.9 - g/ dL ?Globulin, Total 2.6 1.5- 4.5 - g/dL ?Bilirubin, Total 0.5 0.0 -1.2 - mg/dL ?Alkaline Phosphatase 96 44-121 - IU/L ?AST (SGOT) 96 H 0-40 - IU /L ?ALT (SGPT) 120 H 0-44 - IU /L ?eGFR 90 >59 - mL/min/1. 73 ???Lab:Lipid Panel-[id number] (O rder Date - 12/15/2023) (Collection Date & Time - 12/25/2023 08:44 AM) ? Value Reference Range ?Cholesterol, Total 162 1 00-199 - mg/dL ?Triglycerides 182 H 0-149 - mg/dL ?HDL Cholesterol 41 >39 - mg/dL ?VLDL Cholesterol Parker 31 5-40 - mg/dL ?LDL Chol Calc (NIH) 90 0-99 - mg/dL * Examination: ???General Examination: ?Psychiatry?Normal.?GENERAL APPEARANCE:?Well developed, well nourished, in no acute distress.?MUSCULOSKELETAL:?Normal.?HEAD:?Normocephalic, atraumatic.?EYES:?Pupils equal, round, reactive to light and accommodation, sclera non-icteric.?EARS:?Normal.?ORAL CAVITY:?Normal.?THROAT:?Clear.?OROPHARYNX?Normal.?SINUSES?Normal .?NECK/THYROID:?Neck supple, full range of motion, no cervical lymphadenopathy.?SKIN:?Warm and dry, no suspicious lesions.?HEART:?Normal.?LUNGS:?Normal.?BREASTS:?__.?ABDOMEN:?Soft, nontender, nondistended, bowel sounds present, normal.?EXTREMITIES:?Normal.?PERIPHERAL PULSES:?Normal.?NEUROLOGIC:?Nonfocal,? appropriate?motor strength normal upper and lower extremities, sensory exam intact.?FEMALE GENITOURINARY:?__.?MALE GENITOURINARY:?circumcised no hernia no hydrocele,prostate mildly enlarged- LAST Exam.?PODIATRIC:?Normal.?Parts Salesperson? .? Assessment: * Assessment: 1.?Atherosclerotic heart dis ease of crow coronary artery without angina pectoris - I25.10 (Primary)???2.?Male erectile dysfunction, unspecified - N52.9???3.?Essential (primary) hypertension - I10???4.?Mixed hyperlipidemia - E78.2 ??5.?Prediabetes - R73.03???6.?Skin tag - L91.8??? Mr. Hogan is a 63-year-o ld gentleman with coronary artery disease and status post stent placement in 2006 and 2010 at [facility] and follow-up with Dr. Nicholson , hypertension, hyperlipidemia erectile dysfunction is here here for follow up and also want to have skin tags removed from bilateral axilla and groin area.? plan it is follows Coronary artery disease and status post stent placement.? He is asymptomatic.? He is on metoprolol 50 mg twice a day, atorvastatin 80 mg daily and aspirin 81 mg daily.? He follows up with cardiology. Hypertension/hyperlipidemia.? Blood pressure and lipid panel within reasonable limits on her current regimen Pre-diabetes? Dietary modifications and weight loss recommended and check hemoglobin A1c and fasting blood sugars Skin tags removal.? With the verbal consent of the patient we removed total of 5 skin tags.? Side effects of liquid nitrogen treatment discussed with the patients like blister formations, hyperpigmentation in some cases and he understood and agreed to proceed with the plan. Obesity.? Complications of obesity discussed.? Advised regular exercise, low calorie diet and also encouraged abstinence from alcohol consumption as much as possible. Erectile dysfunction.? Most likely arterial insufficiency.? Continue on tadalafil 10 mg as needed Plan: * Treatment: 2.?Prediabetes?LAB: Hemoglobin [id number] (Ordered for 05/11/2024) 3.?Others? Refill Tadalafil Tablet, 10 MG, 1 tablet as needed, Orally, Once a day, 30 days, 15, Refills 6.?? * Procedure Codes:?3079F DIAST BP 80-89 MM [id number] SYST BP GE 130 - 139MM [id number] DESTRUCTION OF SKIN LESIONS * Follow Up:?next appt * Images: * Sign off status: Completed true * Provider:?YAW MERAZ MD Date:?05/11 Generated for Jake robison/Mary/Renata on:?06/18/2024 12:00 PM EDT History and Physical Notes * HPI (History of Present Illness) Category Sub-Category Detail Notes Category Not es Internal Medicine Mr. Helene mays is a 63-year-old gentleman with coronary artery disease and status post stent placement in 2006 and 2010 at [facility] and follow-up with Dr. Nicholson , hypertension and hyperlipidemia here for follow up and also want to have skin tags removed from bilateral axilla and groin area. He is physically active but he does not exercise. His weight is stable. He sleeps well, appetite is good. No GI or symptoms. He does not appear anxious or depressed. He denies any other active issues or concerns. Examination Category Sub-Category Detail Notes Category Not es General Examination GENERAL APPEARANCE: Well dev eloped, well nourished, in no acute distress HEAD: Normocephalic, atrau matic EYES: Pupils equal, round, reactive to light and accommodation, sclera non-icteric EARS: Normal THROAT: Clear NECK/THYROID: Neck supple, full ra nge of motion, no cervical lymphadenopathy HEART: Normal LUNGS: Normal ABDOMEN: Soft, nontender, non distended, bowel sounds present, normal NEUROLOGIC: Nonfocal, appropriat e motor strength normal upper and lower extremities, sensory exam intact SKIN: Warm and dry, no niels picious lesions EXTREMITIES: Normal PERIPHERAL PULSES: Normal BREASTS: __ MUSCULOSKELETAL: Normal MALE GENITOURINARY: circumcised no herni a no hydrocele, prostate mildly enlarged- LAST Exam FEMALE GENITOURINARY: __ ORAL CAVITY: Normal PODIATRIC: Normal Psychiatry Normal OROPHARYNX Normal SINUSES Normal Parts Salesperson
--- OUTSIDE RECORDS SUMMARY | 2024-06-18 12:01 | XMS_ITS ---
Author Organization [facility] Address [address] [place] [address] [address] [place] [address] Care Team Providers Care Transition Coach Name Role Phone YAW MERAZ Primary Care Provider [phone] REASON FOR VISIT No show fee Encounters Encounter Location Date Provider Diagnosis [facility] [address] [facility] [address] [place] [address] 05/11/2024 YAW MERAZ Plan Of Treatment Next Appt Details Provider Name:YAW MERAZ , 07/08/2024 01:00:00 PM, [address] [place] [address] [address], [place], [address], Provider Name:YAW MERAZ , 12/15/2024 10:00:00 AM, [address] [place] [address], [place], [address], Progress Notes * BARBIE ASHTONDOB: [birth year] (63 yo M)Acc No.[id number]:05/11/2024 Patient:?BARBIE ASHTON :1960???Age:63 Y???Sex:Male Address:[address] [place] [address] * true * Date:? Generated for Printi enriqueta/Mary/eTransmitting on:?06/18/2024 12:00 PM EDT
== END 2024-06-18 11:27 | disposition home or self-care (01) ==
LOC: HO.HGI 10:53
PROVIDERS: PCP Hospitalist; Visit Provider Nurse Practitioner Family
DX: Z01.818 Encounter for other preprocedural examination (principal); Z12.11 Encounter for screening for malignant neoplasm of colon; Z86.0101 Personal history of adenomatous and serrated colon polyps; K64.9 Unspecified hemorrhoids
CPT/HCPCS: S0285